=== PATIENT | female | born 1965 | race Caucasian/White ===

== ENCOUNTER → 2018-03-01 | Outpatient (CLI) | payer OTHER ==
[~2018-03-01] VITALS: Ht 152.4 cm; Wt 72.6 kg
[~2018-03-01] MED LIST: HYDROCODON-ACE1 EAC8 PO; MOBIC15 MG PO; NORCO 7.5-3251 EACH PO; SYNTHROID25 MC1 PO; VITAMIN D250000 UNIT PO; ZANAFLEX2 MG PO
[2018-03-01 12:47] VITALS: BP 130/85
== END ==
LOC: PAIN 10:47
DX: M54.5 Low back pain (principal); R20.0 Anesthesia of skin; M19.072 Primary osteoarthritis, left ankle and foot; Z98.890 Other specified postprocedural states

== ENCOUNTER → 2018-03-15 | Outpatient (CLI) | payer OTHER ==
[~2018-03-15] VITALS: Ht 152.4 cm; Wt 74.3 kg
--- NOTE | ~2018-03-15 | HPC ---
[facility] [place] [address] [place] [address] PAIN MANAGEMENT CONSULTATION Name: HOPE WALLACE Room #: REG YOUNG Marlo.#: [id number] Admission: 03/15/18 Attend Phys: Mely Ramírez MD Discharge: Date of : 63 Report #: [id number] THIS REPORT FOR: //name// CC: [facility]ician staff DATE OF SERVICE: 03/15/2018 CHIEF COMPLAINT: Here for treatment of back and leg pain. HISTORY: The patient is a 52-year-old female who has been seen in the pain clinic because of pain and discomfort. The patient has been having pain and discomfort in the low back area since January. She has been experiencing some tightness in her legs involving the right leg, particularly. Notes that pain is exacerbated when she goes from a sitting to a standing position and vice versa. Notes that her pain improves when she has less pressure on her leg. As you may recall, she had back surgery in 2009. 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 Prolonged standing exacerbates her pain. She has returned today with the hope of undergoing an epidural steroid injection to help quell the pain and discomfort which she has been having. She has had chiropractic treatment. DRUG ALLERGIES: STATINS. CURRENT MEDICATIONS: Vitamin D2 50,000 units, tizanidine 2 mg q. 8 hours, hydrocodone 7.5 mg 1 q. 6 hours p.r.n., Meloxicam 15 mg, Synthroid 25 mcg. PAIN CLINIC ASSESSMENT/PQRS: 1. The patient has a history of arthritic changes involving her left ankle. 2. She has not been treated for rheumatoid arthritis. 3. Height 5 feet 0 inches, weight 163 pounds, BMI is 32. 4. Vital signs: Blood pressure 138/80, pulse 87, respiratory rate 16, room air saturation is 97%. 5. Pain intensity 2-3/10. 6. Fall risk. The patient has not fallen in the last 3 months. 7. Blood thinner. The patient is not on a blood thinning medication. 8. Hypertension. The patient has not been treated for hypertension. 9. Opioids greater than 6 weeks. The patient is not on constant opioid medication. 10. Risk assessment tool, low for opioid use. 11. Functional assessment tool . 12. Recreational drug use. The patient denies. 13. Tobacco: The patient denies use of tobacco. 14. Alcohol: The patient denies use of alcoholic beverages. [facility] [address] [place] [address] PAIN MANAGEMENT CONSULTATION Name: HOPE WALLACE Room #: REG [facility]#: [id number] Admission: 03/15/18 Attend Phys: Mely Ramírez MD Discharge: Date of : 63 Report #: [id number] PHYSICAL EXAMINATION: GENERAL: The patient is a well-developed, well-nourished white female. Appears her stated age. She is alert and oriented x 3. Affect is appropriate. Speech is fluent. HEENT: Normocephalic, atraumatic. Extraocular eye muscles intact. Sclerae nonicteric. Mucous membranes are moist. NECK: Without adenopathy or JVD. Good range of motion. CHEST: Clear to auscultation without rhonchi or rales. HEART: Regular rate. S1, S2. ABDOMEN: Nontender. The patient with bowel sounds present. MUSCULOSKELETAL: Without significant scoliosis, kyphosis or lordosis. Upper extremity muscle strength 5/5 for the major muscle groups without sensory changes. Lower extremity, the patient has pain and discomfort that is radiating down in the right leg in the L5-S1 dermatomal distribution on the right. Notes weakness, tingling, and sensory changes. IMPRESSION: 1. Lumbar radiculopathy involving a right large paracentral disk extrusion with migration posteriorly 10 mm into the disk and caudally 13 mm causing pain and impingement on the S1 nerve root. 2. Hypothyroidism. 3. Lumbar radiculopathy, L5-S1 distribution. 4. Arthritis in the left ankle. RECOMMENDATIONS: We discussed treatment options with the patient. Risks and benefits of an epidural steroid injection were again discussed. Possible complications were reviewed. The patient has returned today. Her desire is to undergo an epidural steroid injection. We did again discussed the possible complications, which could include but are not limited to infection, worsening of pain, no improvement in pain, nerve damage, paralysis and the patient elects to proceed. PROCEDURE NOTE: The patient was taken to the procedure area. She was assisted in getting on the examination table. Her back was sterilely prepped with a Betadine solution. A pillow had been placed under her abdomen to bolster and improve positioning. Fluoroscopy using anterior, posterior as well as lateral viewing were implemented. The patient's back had been sterilely prepped. A right paracentral trajectory was used using a midline approach. After appropriate placement of the 17-gauge Tuohy with loss of resistance technique, a total of 80 mg Depo-Medrol, 40 mg triamcinolone and 2 mL of 0.25% bupivacaine was injected. The patient tolerated the procedure well. There were no complications. Total of 8 seconds fluoroscopy time was used. She will follow [address] [address] PAIN MANAGEMENT CONSULTATION Name: HOPE WALLACE Room #: REG CLI [facility].#: [id number] Admission: 03/15/18 Attend Phys: Mely Ramírez MD Discharge: Date of : 63 Report #: [id number] up in the future as needed. We would like to thank you for letting us participate in her care. We hope she continues to improve. By: [id number] Mely Ramírez MD /nt
[2018-03-15 09:21] VITALS: BP 138/80
--- NOTE | 2018-03-15 09:36 | NUR ---
Pain Clinic Assessment: 1. History of Osteoarthritis: LEFT ANKLE History of Rheumatoid Arthritis: 2. Height: 5 ft. 0 in. 152.4 cm. Weight: 163.8 lb. oz. 74.299 kg. Patient's BMI: 32.0 3. Vital Signs: BP: 138/80 Pulse: 87 Resp: 16 Temp: 02 Sat: 97 ECG Mon: 4. Pain Intensity: 2-3 5. Fall Risk: Dizziness: N Needs help standing or walking: N Fallen in the last 3 months: N Fall risk comments: 6. Patient on Blood Thinner: None 7. History of Hypertension: N 8. Opioid Therapy greater than 6 weeks: N Opiate Contract Signed: 9. Risk Assessment Tool Provided: LOW 10. Functional Assessment Tool: 11. Recreational Drug Use: Never Drug Type: Tobacco Use: Never Smoker Tobacco Type: Amount or Packs/day: How Many Years: Alcohol Use: No Frequency: Quant:
== END | disposition home or self-care (01) ==
LOC: PAIN 08:00
DX: M54.16 Radiculopathy, lumbar region (principal); M51.27 Other intervertebral disc displacement, lumbosacral region; E03.9 Hypothyroidism, unspecified; M19.072 Primary osteoarthritis, left ankle and foot; Z88.8 Allergy status to other drugs, medicaments and biological substances; Z79.891 Long term (current) use of opiate analgesic; Z79.899 Other long term (current) drug therapy

== ENCOUNTER → 2018-04-03 | Outpatient (CLI) | payer OTHER ==
[~2018-04-03] VITALS: Ht 152.4 cm; Wt 74.0 kg
[~2018-04-03] MED LIST changes: -SYNTHROID25 MC1 PO; +SYNTHROID50 MCG PO
--- NOTE | ~2018-04-03 | HPC ---
[facility] [place] [address] PAIN MANAGEMENT CONSULTATION Name: HOPE WALLACE IRINA Room #: REG YOUNG Susy#: [id number] Admission: 04/03/18 Attend Phys: Mely Ramírez MD Discharge: Date of : 63 Report #: [id number] THIS REPORT FOR: //name// CC: Dr. Issa PANCHAL physician/PCP ISSA Ramírez DATE OF SERVICE: 04/03/2018 CHIEF COMPLAINT: I am still having pain down in my leg, seems to be getting better with the physical therapy. FOLLOWUP HISTORY: The patient is a 52-year-old female who has been seen in the pain clinic because of pain and discomfort, which she is experiencing, which radiates down into her right leg with numbness, weakness, sensory changes with muscle weakness as well as numbness and tingling. She is still limited in her ability to engage in activities of daily living. Continues to work, but they are experiencing quite a bit of pain and discomfort. Notes that her pain can be quite debilitating. Rates it as a 4/10 at this juncture. As you may recall, she has had surgery in the past. This was back in 2009. 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 She has undergone epidural steroid injections to help with the pain. She has undergone chiropractic treatment. She has used nonsteroidal anti-inflammatory medications. She had an MRI, which indicates the presence of a broad-based posterior disk bulge with a large right paracentral disk extrusion, which migrates posteriorly 10 mm in the disk space and caudally 13 mm, which causes marked effacement and impingement on the descending right S1 nerve root and posterior displacement of the descending S2 nerve root. ALLERGIES: STATINS. MEDICATIONS: Vitamin D2 50,000 units, tizanidine 2 mg q. 8 hours, hydrocodone 7.5 mg 1 p.o. q. 6 hours p.r.n., Meloxicam 15 mg, Synthroid 25 mcg. PAIN CLINIC ASSESSMENT/PQRS: 1. The patient has a history of arthritic change in her low back and has had some fusion of her left ankle. 2. Rheumatoid arthritis. The patient is not being treated for rheumatoid arthritis. 3. Height 5 feet 0 inches, weight 163 pounds, BMI is 31.9. 4. Vital Signs: Blood pressure 135/89, pulse 83, respiratory rate 20, room air saturation 97%. 5. Pain intensity: 4/10. 6. Fall risk. The patient has not fallen in the last 3 months. 7. Blood thinner. The patient is not on a blood thinning medication. [address] [address] PAIN MANAGEMENT CONSULTATION Name: HOPE WALLACE Room #: REG CL M.R.#: [id number] Admission: 04/03/18 Attend Phys: Mely Ramírez MD Discharge: Date of : 63 Report #: [id number] 8. Hypertension. The patient has not been treated for hypertension. 9. Opioid greater than 6 weeks. The patient is not receiving medications on a long-term basis, but has received some from the pain clinic. 10. Risk assessment tool, low for opioid use. 11. Functional assessment tool . 12. Blood recreational drug use. The patient denies use of recreational drugs. 13. Tobacco: The patient has never smoked. 14. Alcohol: The patient denies frequent use of alcoholic beverages. PHYSICAL EXAMINATION: GENERAL: The patient is a well-developed, well-nourished white female. Appears her stated age. She is alert and oriented x 3. Her affect is appropriate. Speech is fluent. HEENT: Normocephalic, atraumatic. Extraocular eye muscles intact. Sclerae nonicteric. Mucous membranes are moist. The patient wears glasses. NECK: Without adenopathy or JVD. Good range of motion. CHEST: Clear to auscultation without rhonchi or rales. HEART: Regular rate. S1, S2. ABDOMEN: Nontender. Bowel sounds present. MUSCULOSKELETAL: The patient without significant scoliosis, kyphosis or lordosis. Uppermost Upper extremity muscle strength is judged to be 5/5 for the major muscle groups without sensory changes. Lower extremity muscle strength is judged to be 5-/5 for the lower extremity involving the right lower leg. This pain and discomfort, which radiates down in the L5-S1 dermatomal distribution with numbness, weakness, tingling, and sensory changes. IMPRESSION: 1. Lumbar radiculopathy involving the right large paracentral disk extrusion which migrates posteriorly 10 mm into the disk and caudally 13 mm causing pain and impingement on the S1 nerve root. 2. Hypothyroidism. 3. Lumbar radiculopathy, L5-S1 distribution, status post back surgery in 2009. 4. Arthritis in the left ankle. RECOMMENDATIONS: We discussed treatment options with the patient. Risks and benefits of the epidural steroid injection were discussed. The patient noted about 50% improvement and the last injection in conjunction with her physical therapy and other medications and modes of treatment. She still has pain, which is problematic. Continues to work on a regular basis as a [place] [employer] [place]. This involves longstanding on her affected leg. She would like to proceed with another epidural steroid injection. Had no complication from the last injection. IMPRESSION: Lumbar radiculopathy involving the right L5-S1 dermatomal distribution as stated above. The patient will return to the pain clinic at which time she will then undergo a second epidural steroid injection with a [facility] [address] [place] [address] PAIN MANAGEMENT CONSULTATION Name: HOPE WALLACE [facility] [id number] Admission: 04/03/18 Attend Phys: Mely Ramírez MD Discharge: Date of : 63 Report #: [id number] desire to improve pain and discomfort. The patient hopes that she can avoid surgery at this juncture. We would like to thank you for letting us participate in her care. We hope she continues to improve. The patient has undergone physical therapy greater than 6 weeks, has had an MRI. She is using nonsteroidal anti-inflammatory medications and continue stretching exercises. By: [id number] Mely Ramírez MD /EMMY
[2018-04-03 10:46] VITALS: BP 135/89
--- NOTE | 2018-04-03 11:00 | NUR ---
Pain Clinic Assessment: 1. History of Osteoarthritis: LEFT ANKLE History of Rheumatoid Arthritis: 2. Height: 5 ft. 0 in. 152.4 cm. Weight: 163.2 lb. oz. 74.027 kg. Patient's BMI: 31.9 3. Vital Signs: BP: 135/89 Pulse: 83 Resp: 20 Temp: 02 Sat: 97 ECG Mon: 4. Pain Intensity: 4 5. Fall Risk: Dizziness: N Needs help standing or walking: N Fallen in the last 3 months: N Fall risk comments: 6. Patient on Blood Thinner: None 7. History of Hypertension: N 8. Opioid Therapy greater than 6 weeks: N Opiate Contract Signed: 9. Risk Assessment Tool Provided: LOW 10. Functional Assessment Tool: 11. Recreational Drug Use: Never Drug Type: Tobacco Use: Never Smoker Tobacco Type: Amount or Packs/day: How Many Years: Alcohol Use: No Frequency: Quant:
== END ==
LOC: PAIN 07:19
DX: M51.16 Intervertebral disc disorders with radiculopathy, lumbar region (principal); M13.872 Other specified arthritis, left ankle and foot; E03.9 Hypothyroidism, unspecified

== ENCOUNTER → 2018-04-10 | Outpatient (CLI) | payer OTHER ==
[~2018-04-10] VITALS: Ht 152.4 cm; Wt 74.5 kg
[2018-04-10 13:01] VITALS: BP 123/70
--- NOTE | 2018-04-10 13:02 | NUR ---
Pain Clinic Assessment: 1. History of Osteoarthritis: LEFT ANKLE History of Rheumatoid Arthritis: 2. Height: 5 ft. 0 in. 152.4 cm. Weight: 164.2 lb. oz. 74.481 kg. Patient's BMI: 32.1 3. Vital Signs: BP: 123/70 Pulse: 82 Resp: 18 Temp: 02 Sat: 97 ECG Mon: 4. Pain Intensity: 3 5. Fall Risk: Dizziness: N Needs help standing or walking: N Fallen in the last 3 months: N Fall risk comments: 6. Patient on Blood Thinner: None 7. History of Hypertension: N 8. Opioid Therapy greater than 6 weeks: Y Opiate Contract Signed: 9. Risk Assessment Tool Provided: LOW 10. Functional Assessment Tool: 11. Recreational Drug Use: Never Drug Type: Tobacco Use: Never Smoker Tobacco Type: Amount or Packs/day: How Many Years: Alcohol Use: No Frequency: Quant:
--- NOTE | 2018-04-12 08:38 | HPC ---
[facility] [place] [place] [address] PAIN MANAGEMENT CONSULTATION Name: HOPE WALLACE IRINA Room #: REG [facility].#: [id number] Admission: 04/10/18 Attend Phys: Mely Ramírez MD Discharge: Date of : 63 Report #: [id number] THIS REPORT FOR: //name// CC: [facility] physician/PCP ISSA Ramírez DATE OF SERVICE: 04/10/2018 CHIEF COMPLAINT: Here for another epidural injection. Still having quite a bit of pain. HISTORY OF PRESENT ILLNESS: The patient is a 52-year-old female who has been followed in the Pain Clinic. As you recall, she is having significant pain, has been radiating down into her right leg with numbness. She has had back surgery in the past. She is experiencing numbness and tingling. It makes her life quite problematic. As you recall, she works in a bank. Prolonged standing exacerbates her pain and discomfort. She had her last back surgery in 2009. She has undergone chiropractic treatment, tried nonsteroidal anti-inflammatory medications, but still continues to have pain, which is problematic. LABORATORY DATA: The MRI showed a significantly large right-sided paracentral disk extrusion, which has migrated posteriorly 10 mm in the disk space and caudally 13 mm. This has caused marked effacement and impingement on the descending right S1 nerve root. ALLERGIES: STATINS. CURRENT MEDICATIONS: Vitamin D2 50,000 units, tizanidine 2 mg q. 8 hours, hydrocodone 7.5 mg 1 p.o. q.6 hours p.r.n., meloxicam 15 mg, Synthroid 25 mcg. PAIN CLINIC ASSESSMENT/PQRS: 1. The patient has a history of arthritic change in her low back and has had fusion in her left ankle. 2. Rheumatoid arthritis. The patient has not been treated for rheumatoid arthritis. 3. Height 5 feet 0 inches, weight 164 pounds, BMI is 32.1. 4. Vital signs: Blood pressure 123/70, pulse 82, respiratory rate 18, room air saturation 97%. 5. Pain intensity 05/26. 6. Fall risk. The patient has not fallen in the last 3 months. 7. Blood thinner. The patient is not on a blood thinning medication. 8. Hypertension. The patient has not been treated for hypertension. 9. Opioids greater than 6 weeks. The patient is not receiving opioid medications on a regular basis, greater than 6 weeks. 10. Risk assessment tool, low for opioid use. [address] [address] PAIN MANAGEMENT CONSULTATION Name: HOPE WALLACE [id number] Admission: 04/10/18 Attend Phys: Mely Ramírez MD Discharge: Date of : 63 Report #: [id number] 11. Functional assessment . 12. Recreational drug use. The patient denies use of recreational drugs. 13. Tobacco: The patient has never smoked. 14. Alcohol: The patient denies use of alcoholic beverages. PHYSICAL EXAMINATION: GENERAL: The patient is a well-developed, well-nourished white female. Appears her stated age. She is alert and oriented x 3. Affect is appropriate. Speech is fluent. HEENT: Normocephalic, atraumatic. Extraocular muscles intact. Sclerae nonicteric. The patient wears glasses. Mucous membranes are moist. NECK: Without adenopathy or JVD. Good range of motion. CHEST: Clear to auscultation without rhonchi or rales. HEART: Regular rate. S1, S2. ABDOMEN: Nontender. Bowel sounds present. MUSCULOSKELETAL: Without significant scoliosis, kyphosis or lordosis. Upper extremity muscle strength continues to be 5/5 for the major muscle groups. The patient has some pain and discomfort in the low portion of her back, and muscle strength is judged to be 5-/5 for the lower extremity on the right. The patient walks with slightly antalgic gait. Has pain and discomfort with sensory changes with numbness, weakness and tingling in the right lower extremity. IMPRESSION: 1. Lumbar radiculopathy involving the right L5-S1 dermatomal distribution secondary to a large central disk extrusion, which migrates 10 mm posteriorly and 13 mm caudally causing impingement on the S1 nerve root. 2. Hypothyroidism. 3. Lumbar radiculopathy, L5-S1 distribution, status post surgery in 2009. 4. Arthritis in the left ankle. RECOMMENDATIONS: We discussed treatment options with the patient. The patient has returned today for another injection. States that the patient did experience about 50% improvement from the last injection. 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 Today, she would like to proceed with another injection with the help of a hope that things will continue to improve. We again discussed the risks and benefits of the procedure, which could include but are not limited to infection, increased muscle soreness, headache, bleeding, worsening of pain, nerve trauma, paralysis and the patient elects to proceed. PROCEDURE NOTE: The patient was taken to the examination area. She is assisted in getting on the examination table. She is in prone position. Her back was sterilely prepped with a Betadine solution. A pillow had been placed under her abdomen to bolster and improve positioning. A 0.25% bupivacaine was infiltrated at the right L5-S1 nerve root area. A 17-gauge Tuohy with loss of resistance technique was used to gain access to the epidural space. There was no CSF, heme or paresthesia. The midline approach was unremarkable. After appropriate [facility] [address] [place] [address] PAIN MANAGEMENT CONSULTATION Name: HOPE WALLACE Room #: REG [facility].R.#: [id number] Admission: 04/10/18 Attend Phys: Mely Ramírez MD Discharge: Date of : 63 Report #: [id number] positioning, a total of 80 mg Depo-Medrol, 40 mg triamcinolone and 2 mL of 0.25% bupivacaine was injected. She tolerated the procedure well. There were no complications. She rated her pain as 0 at the time of discharge. The patient had 5 seconds of fluoroscopy time. She will follow up in the future as needed. She will continue to take hydrocodone p.r.n. as needed. We would like to thank you for letting us participate in her care. We hope she continues to improve. <ELECTRONICALLY SIGNED> By: Mely Ramírez MD 04/12/18 [id number] Mely Ramírez MD /nt
== END | disposition home or self-care (01) ==
LOC: PAIN 07:05
DX: M51.17 Intervertebral disc disorders with radiculopathy, lumbosacral region (principal); E03.9 Hypothyroidism, unspecified; M19.072 Primary osteoarthritis, left ankle and foot; I10 Essential (primary) hypertension; Z88.8 Allergy status to other drugs, medicaments and biological substances; Z79.899 Other long term (current) drug therapy

== ENCOUNTER → 2018-05-01 | Outpatient (CLI) | payer OTHER ==
[~2018-05-01] VITALS: Ht 152.4 cm; Wt 74.8 kg
[~2018-05-01] MED LIST changes: +NEURONTIN 300300 M1 PO; +OMEGA-31000 M1 PO; +SYNTHROID75 MCG PO
--- NOTE | ~2018-05-01 | HPC ---
[facility] [place] [address] PAIN MANAGEMENT CONSULTATION Name: WOLFGANGDAVIDHOPE IRINA Room #: REG YOUNG Susy#: [id number] Admission: 05/01/18 Attend Phys: Mely Ramírez MD Discharge: Date of : 63 Report #: [id number] THIS REPORT FOR: //name// CC: FAM physician/PCP ISSA Ramírez DATE OF SERVICE: 05/01/2018 FOLLOWUP COMPLAINT. I am still having pain down in my leg, still hard to stand. HISTORY: The patient is a 52-year-old female, who has been followed in the pain clinic because of lumbar radiculopathy. She has continued to work. She continues to have pain and discomfort that radiates down into her right leg with numbness, tingling, and muscle weakness. As you may recall, she has an MRI, which showed a significantly large right paracentral disk extrusion. This seems to have migrated posteriorly 10 mm into the disk space and 13 mm caudally. This has caused marked effacement and impingement on the descending right L5-S1 nerve root. The patient continues to have pain and discomfort, which is still quite problematic. She has tried nonsteroidal anti-inflammatory medications. She is having difficulty sleeping because of the pain. She has used hydrocodone and finds that that medication as well as meloxicam have been favorable. She continues to use Synthroid. ALLERGIES: THE PATIENT IS ALLERGIC TO STATINS. PAIN CLINIC ASSESSMENT AND PQRS: 1. The patient has a history of osteoarthritic changes in the low back and has had pain in her left ankle. She has undergone fusion. 2. Rheumatoid arthritis. The patient has not been treated for rheumatoid arthritis. 3. Pain intensity is 3/10. 4. Fall risk. The patient has not fallen in the last 3 months. 5. Blood thinner. The patient is not on a blood thinning medication. 6. Hypertension. The patient is not being treated for hypertension. 7. Opioids greater than 6 weeks. The patient is on opioid medications to help control her pain. 8. Risk assessment tool, [facility]. 9. Functional assessment tool, . 10. Recreational drug use. The patient has never used recreational drugs. 11. Tobacco: The patient has never smoked. 12. Alcohol: The patient denies use of alcoholic beverages. PHYSICAL EXAMINATION: GENERAL: The patient is a well-developed, well-nourished white female. She appears her stated age. She is alert and oriented x 3[place] [address] PAIN MANAGEMENT CONSULTATION Name: HOPE WALLACE Room #: REG [facility].#: [id number] Admission: 05/01/18 Attend Phys: Mely Ramírez MD Discharge: Date of : 63 Report #: [id number] appropriate. Speech is fluent. Height is 5 feet 0 inches, weight is 164 pounds, and BMI is 32.2. VITAL SIGNS: Blood pressure is 150/86, pulse rate is 96, respiratory rate is 16, and room air saturation is 97%. HEENT: Normocephalic, atraumatic. Extraocular eye muscles intact. Sclerae nonicteric. Mucous membranes are moist. The patient wears glasses. NECK: Without adenopathy, JVD. Good range of motion. CHEST: Clear to auscultation without rhonchi or rales. HEART: Regular rate. S1, S2. ABDOMEN: Nontender. Bowel sounds present. MUSCULOSKELETAL: Without significant scoliosis, kyphosis, or lordosis. Upper extremity muscle strength is judged to be 5/5 for the major muscle groups in the upper extremity. Lower extremity muscle groups is 5-/5 with pain radiating down into the L5-S1 dermatomal distribution on the right for the patient and has pain and walks with an antalgic gait. She notes some sensory changes with numbness in the right L5-S1 dermatomal distribution. She has some pain and discomfort in left ankle, status post fusion of the ankle in the past. IMPRESSION: 1. Lumbar radiculopathy involving the L5-S1 dermatomal distribution secondary to a large central disk extrusion, which appears to be placing pressure on the S1 nerve. 2. Hypothyroidism. 3. Lumbar radiculopathy. 4. L5-S1 dermatomal distribution, pain, status post surgery in 2010. 5. Arthritis of the left ankle. RECOMMENDATIONS: We have discussed treatment options with the patient. The patient has option to undergo another epidural steroid injection. She has returned today for evaluation. She feels that there has been some improvement in her pain, but still continues to be problematic. She is unable to stand for long periods of time. She works as a banking supervisor. Prolonged standing on her feet is problematic. Also with the left ankle, which has been fused makes her life somewhat difficult. At this point, I think it would be reasonable for the patient to visit/entertained a surgical option. Again, if the third epidural steroid injection is not helpful, the patient could then proceed with a surgical option if the surgeon felt that there would be a reasonable thing to do at this juncture. We would like to thank you for letting us to participate in her care. She continues to gleaned some benefit from the epidural steroid injections, albeit [facility] [address] [place] [address] PAIN MANAGEMENT CONSULTATION Name: HOPE WALLACE Room #: REG [facility].#: [id number] Admission: 05/01/18 Attend Phys: Mely Ramírez MD Discharge: Date of : 63 Report #: [id number] slowly. She will return to the pain clinic for another epidural steroid injection in the L4-L5 dermatomal distribution. By: [id number] Mely Ramírez MD /EMMY
[2018-05-01 09:17] VITALS: BP 150/86
--- NOTE | 2018-05-01 09:19 | NUR ---
Pain Clinic Assessment: 1. History of Osteoarthritis: LEFT ANKLE History of Rheumatoid Arthritis: 2. Height: 5 ft. 0 in. 152.4 cm. Weight: 164.8 lb. oz. 74.753 kg. Patient's BMI: 32.2 3. Vital Signs: BP: 150/86 Pulse: 96 Resp: 16 Temp: 02 Sat: 97 ECG Mon: 4. Pain Intensity: 3 5. Fall Risk: Dizziness: N Needs help standing or walking: N Fallen in the last 3 months: N Fall risk comments: 6. Patient on Blood Thinner: None 7. History of Hypertension: N 8. Opioid Therapy greater than 6 weeks: Y Opiate Contract Signed: 9. Risk Assessment Tool Provided: LOW 10. Functional Assessment Tool: 11. Recreational Drug Use: Never Drug Type: Tobacco Use: Never Smoker Tobacco Type: Amount or Packs/day: How Many Years: Alcohol Use: No Frequency: Quant:
== END ==
LOC: PAIN 06:59
DX: M51.17 Intervertebral disc disorders with radiculopathy, lumbosacral region (principal); E03.9 Hypothyroidism, unspecified; M19.072 Primary osteoarthritis, left ankle and foot; I10 Essential (primary) hypertension; Z79.891 Long term (current) use of opiate analgesic